=== PATIENT | female | born 1995 | race Caucasian/White ===

== ENCOUNTER 2017-04-10 19:04 | Emergency (ER) | payer OTHER ==
[~2017-04-10] VITALS: Ht 167.6 cm; Wt 97.5 kg
[~2017-04-10 19:04] MED LIST: MTR600X PO; OXYC5TAB PO
[2017-04-10 19:19] VITALS: TEMP 36.9; Ht 167.6 cm; Wt 97.5 kg
[2017-04-10] MEDS ORDERED: SODIUM CHLORIDE 0.9% 1000ML 1,000 ML IV STA (20:10)
[2017-04-10] MEDS ORDERED: KETOROLAC TROMETHAMINE 30 MG/ML VIAL IV STA (20:10)
[2017-04-10] MEDS ORDERED: PROCHLORPERAZINE 5 MG/ML 2 ML VIAL IV STA (20:10)
[2017-04-10] MEDS ORDERED: DEXAMETHASONE SOD INJ 4 MG/ML VIAL IV STA (20:10)
[2017-04-10 20:42] LABS: MEAN CELL VOLUME 84.7 fL (80-100); MEAN CORPUSCULAR HEMOGLOBIN 29.2 pg (25-34); MEAN CORPUSCULAR HGB CONC 34.5 g/dl (32-36); MEAN PLATELET VOLUME 9.2 fL (7.4-10.4); PLATELET COUNT 207 K/uL (130-400); RED BLOOD COUNT 4.96 M/uL (4.2-5.4)
[2017-04-10 20:45] LABS: URINE APPEARANCE CLEAR (CLEAR); URINE BILIRUBIN NEG (NEG); URINE COLOR YELLOW; URINE NITRITE NEG (NEG); URINE PH 6.5 (4.5-7.5); UROBILINOGEN NEG (NEG); ZZUR CULT IF INDIC CLEAN CATCH NO
[2017-04-10 20:50] LABS: MANUAL MICROSCOPIC REQUIRED? NO; REVIEW REQ? NO
[2017-04-10 21:02] LABS: BUN/CREATININE RATIO 13.5 (10-20); CALCIUM 8.5 mg/dl (8.5-10.1); CREATININE 0.71 mg/dl (0.60-1.20); POTASSIUM 3.8 mmol/L (3.5-5.1)
--- NOTE | 2017-04-10 21:03 | DIAGNOSTIC IMAGING REPORT ---
HEAD WITHOUT CONTRAST (CT) CLINICAL HISTORY: 21 years-old Female with Evaluate for hemorrhage or pathology. Acute headache for one week. TECHNIQUE: Multiple axial CT images of the head were obtained without contrast. A dose lowering technique was utilized adhering to the principles of ALARA. CT DOSE: 844.62 mGy.cm COMPARISON: None. FINDINGS: No acute intracranial hemorrhage, midline shift, mass, large territorial ischemia or abnormal extra-axial collection. The calvarium is intact. The paranasal sinuses, mastoid air cells, and middle ear cavities are clear. IMPRESSION: No acute intracranial abnormality. The above report was generated using voice recognition software. It may contain grammatical, syntax or spelling errors. Electronically signed by: Moises Peacock M.D. 04/10/2017 9:01 PM Dictated Date/Time: 04/10/2017 9:00 PM
[2017-04-10 21:07] LABS: COMPLETE YES; EOSINOPHIL % 2.6 %; LARGE GRANULAR LYMPH ABSOLUTE 0.91 K/uL; LARGE GRANULAR LYMPHOCYTE % 16.5 %; LYMPH ABS # 1.34 K/uL (1.2-3.4); LYMPHOCYTE % 24.3 %; NEUTROPHILS % 52.3 %
--- NOTE | 2017-04-10 21:15 | EMERGENCY ROOM VISIT NOTE ---
History First contact with patient: 19:57 Chief Complaint: HEADACHE Stated Complaint: MIGRAINE,DIZZINESS, ELEVATED HEART RATE History of Present Illness The patient is a 21 year old female who presents to the Emergency Room with complaints of headache for the past week. She states the headache came on gradually, has been constant, progressively worsening, started on the left side of her head and has now progressed to the whole top of her head, throbbing, 7/ 10. She has associated nausea, photophobia, and intermittent dizziness with the headache. She has not had any vomiting. She has taken ibuprofen and Tylenol for the headaches without improvement. She denies a history of migraines, states that she has gotten similar headaches in the past, but they have never been this severe or lasted this long. She does note about 5 days ago that she had a sore throat with some fevers for about 2 days, she saw her PCP for this and was told it was most likely a virus. She denies any fevers in the past 3 days. She denies any neck pain or stiffness, back pain, chest pain, shortness of breath, abdominal pain, urinary symptoms, vision changes, rash. Review of Systems A complete 10 point review of systems was reviewed with the patient with pertinent positives and negatives as per history of present illness. All else were negative. Past Medical/Surgical History Medical Problems: (1) 39 weeks gestation of (2) Amniotic fluid leaking (3) Breech presentation Social History Smoking Status: Never Smoker Current/Historical Medications No Active Prescriptions or Reported Meds Allergies Coded Allergies: No Known Allergies (Unverified , 03/04/16) Physical Exam Vital Signs Date Time Temp Pulse Resp B/P (MAP) Pulse Ox O2 Delivery O2 Flow Rate FiO2 04/10/17 21:35 63 14 104/72 100 04/10/17 19:19 36.9 87 20 128/91 98 Room Air Physical Exam CONSTITUTIONAL: No acute distress, but appears to be uncomfortable and in pain. Well appearing and well nourished. Alert and oriented X 4 with normal affect. HEENT: Normocephalic, atraumatic. Pupils equal, round and reactive to light, EOMI. Photophobic. TMs normal. Pharynx normal. NECK: Supple, full active range of motion without discomfort. RESPIRATORY: Clear to auscultation bilaterally with no wheezing, crackles, rhonchi or stridor. Equal expansion bilaterally. CARDIOVASCULAR: Regular rate and rhythm with no murmurs, rubs or gallops. Normal peripheral perfusion. No edema. GASTROINTESTINAL: Soft, nontender, nondistended. Bowel sounds present in all quadrants. MUSCULOSKELETAL: Full range of motion of all joints without discomfort. INTEGUMENTARY: No rash or other significant dermatologic conditions noted. NEUROLOGIC: Cranial nerves II-XII grossly intact. No focal neurologic deficits noted. Normal strength, normal sensation, normal gait, normal coordination, normal speech. Medical Decision & Procedures ER Provider Diagnostic Interpretation: HEAD WITHOUT CONTRAST (CT) CLINICAL HISTORY: 21 years-old Female with Evaluate for hemorrhage or pathology. Acute headache for one week. TECHNIQUE: Multiple axial CT images of the head were obtained without contrast. A dose lowering technique was utilized adhering to the principles of ALARA. CT DOSE: 844.62 mGy.cm COMPARISON: None. FINDINGS: No acute intracranial hemorrhage, midline shift, mass, large territorial ischemia or abnormal extra-axial collection. The calvarium is intact. The paranasal sinuses, mastoid air cells, and middle ear cavities are clear. IMPRESSION: No acute intracranial abnormality. Laboratory Results 04/10/17 20:30 Red Blood Count 4.96, Mean Corpuscular Volume 84.7, Mean Corpuscular Hemoglobin 29.2, Mean Corpuscular Hemoglobin Concent 34.5, Mean Platelet Volume 9.2 04/10/17 20:30 Test 04/10/17 20:30 White Blood Count 5.50 K/uL (4.8-10.8) Red Blood Count 4.96 M/uL (4.2-5.4) Hemoglobin 14.5 g/dL (12.0-16.0) Hematocrit 42.0 % (37-47) Mean Corpuscular Volume 84.7 fL (80-100) Mean Corpuscular Hemoglobin 29.2 pg (25-34) Mean Corpuscular Hemoglobin Concent 34.5 g/dl (32-36) Platelet Count 207 K/uL (130-400) Mean Platelet Volume 9.2 fL (7.4-10.4) RDW Standard Deviation 41.3 fL (36.4-46.3) RDW Coefficient of Variation 13.4 % (11.5-14.5) Neutrophils % (Manual) 52.3 % Lymphocytes % (Manual) 24.3 % Monocytes % (Manual) 4.3 % Eosinophils % (Manual) 2.6 % Neutrophils # (Manual) 2.88 K/uL (1.4-6.5) Total Absolute Neutrophils 2.88 K/uL (1.4-6.5) Lymphocytes # (Manual) 1.34 K/uL (1.2-3.4) Total Absolute Lymphocytes 2.24 K/uL (1.2-3.4) Monocytes # (Manual) 0.24 K/uL (0.11-0.59) Eosinophils # (Manual) 0.14 K/uL (0-0.5) Percent Large Granular Lymphocytes 16.5 % Absolute Large Granular Lymphocytes 0.91 K/uL Red Blood Cell Morphology Unremarkable Urine Color YELLOW Urine Appearance CLEAR (CLEAR) Urine pH 6.5 (4.5-7.5) Urine Specific [place] 1.020 (1.000-1.030) Urine Protein NEG (NEG) Urine Glucose (UA) NEG (NEG) Urine Ketones NEG (NEG) Urine Occult Blood NEG (NEG) Urine Nitrite NEG (NEG) Urine Bilirubin NEG (NEG) Urine Urobilinogen NEG (NEG) Urine Leukocyte Esterase NEG (NEG) Urine Test NEG (NEG) Anion Gap 9.0 mmol/L (3-11) Est Creatinine Clear Calc Drug Dose 145.0 ml/min Estimated GFR () 139.1 Estimated GFR (Non- 120.1 BUN/Creatinine Ratio 13.5 (10-20) Calcium Level 8.5 mg/dl (8.5-10.1) Medications Administered Medications (Trade) Dose Ordered Sig/Jovana Route Start Time Stop Time Status Last Admin Dose Admin Prochlorperazine Edisylate (Compazine Inj) 10 mg NOW STAT IV 04/10/17 20:10 04/10/17 20:13 DC 04/10/17 20:42 10 MG Sodium Chloride 1,000 ml @ 999 mls/hr Q1H1M STAT IV 04/10/17 20:10 04/10/17 21:10 DC 04/10/17 20:43 999 MLS/HR Ketorolac Tromethamine (Toradol Inj) 15 mg NOW STAT IV 04/10/17 20:10 04/10/17 20:13 DC 04/10/17 20:42 15 MG Dexamethasone Sodium Phosphate (Decadron Inj) 10 mg NOW STAT IV 04/10/17 20:10 04/10/17 20:13 DC 04/10/17 20:43 10 MG Medical Decision CC: Patient presenting with complaint of headache Interpretation of Labs: No leukocytosis, no anemia, no significant electrolyte abnormality, normal renal function. UA negative. Urine negative. Differential Diagnosis: Includes, but not limited to migraine, tension headache , sinusitis, intracranial hemorrhage, mass or mass effect, meningitis, among others. Medication Reconciliation: I attest that I have personally reviewed the patient' s current medication list. Vital signs review: I reviewed the patient's vital signs and interpret them as follows: T: Afebrile; BP: Hypertensive; HR: Within normal limits; RR: Within normal limits; Pulse Ox: Within normal limits on room air. Blood pressure screening: The patient was found to have an elevated blood pressure, this was felt to be situational. Summary: Patient was evaluated at bedside, history of physical exam performed. Patient is alert and oriented, no acute distress but does appear somewhat uncomfortable, resting quietly in the stretcher. She does have the lights turned off in the room due to photophobia. Neurologic exam is completely intact with no focal deficits. Given patient's complaint of unusually long headache, CT of the head ordered to rule out any underlying disease process. I do not suspect subarachnoid hemorrhage. Orders were placed at bedside for basic labs, urine and urine , IV fluids/Compazine/Toradol/Decadron to treat headache. Patient discussed with Dr. Melara, who agrees with my assessment and plan. Labs reviewed as above, no acute abnormalities. CT imaging reviewed, unremarkable. Patient reassessed multiple times throughout ED stay, she reports her headache is very much improved, now rates as a 2/10 and she appears very comfortable. Patient was updated on all results and plan for discharge. She was encouraged to follow up with her PCP. Patient was also given strict return precautions should her symptoms worsen or return, she verbalized understanding. Patient was discharged home in stable condition and ambulatory. Impression Primary Impression: Migraine Departure Information Dispostion Home / Self-Care Condition GOOD Prescriptions No Active Prescriptions or Reported Meds Referrals Una López D.O. (PCP) Patient Instructions ED Headache Migraine, My [facility] Additional Instructions DO NOT drive, drink alcohol, operate machinery, or perform dangerous activities today. Rest today in a quiet, peaceful, dark environment and get a full 8-10 hrs of sleep tonight. Avoid loud noises, smoke/smoking, alcohol, bright lights, stress, or physical exertion today to minimize the chance the headache may return. Continue current medications as prescribed. Ibuprofen(Motrin, Advil) may be used for return headaches. Use 600mg every six hours as needed. Take with food. Avoid using more than 2400mg in a 24 hour period. Do not use 2400mg per day for more than three consecutive days without physician direction. Prolonged inappropriate use can lead to stomach upset or ulcers. (AND/OR) Acetaminophen(Tylenol) may also be used for headaches. Use 1000mg every 8 hours as needed. Avoid using more than 3000 mg in a 24 hour period. Return to the ER for passing out, worsening headache, vision problems, neck stiffness/pain, fevers, vomiting, worsening of your condition, or as needed. Follow up with your primary physician in 2-3 days for a recheck of your current condition. Work Instructions Return To Work: 1 day Problem Qualifiers Primary Impression: Migraine Migraine type: unspecified Status migrainosus presence: without status migrainosus Intractability: not intractable Qualified Codes: G43.909 - Migraine, unspecified, not intractable, without status migrainosus
[2017-04-10 21:35] VITALS: BP 104/72; PULSE 63; O2SAT 100
== END 2017-04-10 21:35 | disposition home or self-care (01) ==
LOC: C.EDB 19:06 → C.EDC 21:35
DX: G43.909 Migraine, unspecified, not intractable, without status migrainosus (principal)

== ENCOUNTER 2020-03-05 14:30 | Inpatient (IN) ==
[2020-03-05] MEDS ORDERED: DIPHTHERIA/TETANUS/PERTUSSIS 0.5 ML SYR/VIAL IM ONE (15:01)
[2020-03-05 15:12] LABS: Appearance Urine Clear (Clear); Bacteria Urine Automated Negative (Negative); Bilirubin Urine Negative (Negative); Blood Urine Negative (Negative); Color Urine Dark Yellow; Epithelial Cell Urine Auto >30 /lpf (0-5); Glucose Urine UA Negative (Negative); Ketones Urine 2+ (Negative); Leukocyte Esterase Urine Negative (Negative); Nitrite Urine Negative (Negative); Protein Urine Trace (Negative); RBC Urine Automated 0-4 /hpf (0-4); Specific Gravity Urine 1.028 (1.000-1.030); Urobilinogen Urine Negative (Negative); pH Urine 6.5 (4.5-7.5)
[2020-03-05 15:26] LABS: Basophils # (auto) 0.02 K/uL (0-0.2); Basophils % (auto) 0.2 %; Eosinophils % (auto) 1.2 %; Hematocrit (blood only) 43.1 % (37-47); Hemoglobin 15.1 g/dL (12.0-16.0); Immature Granulocytes # (auto) 0.01 K/uL (0.00-0.02); Immature Granulocytes % (auto) 0.1 %; Lymphocytes # (auto) 1.76 K/uL (1.2-3.4); Lymphocytes % (auto) 21.6 %; Mean Corpuscular Volume 88.5 fL (80-100); Mean Platelet Volume 10.4 fL (7.4-10.4); Monocytes # (auto) 0.41 K/uL (0.11-0.59); Neutrophils # (auto) 5.86 K/uL (1.4-6.5); Neutrophils % (auto) 71.9 %; Platelet Count 248 K/uL (130-400); RDW Coefficient of Variation 13.2 % (11.5-14.5); RDW Standard Deviation 42.9 fL (36.4-46.3); Red Blood Count 4.87 M/uL (4.2-5.4); White Blood Count 8.16 K/uL (4.8-10.8)
[2020-03-05 15:37] LABS: Amphetamines+Metham, Urine Neg (Neg); Barbiturates, Urine Neg (Neg); Benzodiazepine, Urine Neg (Neg); Cocaine, Urine Neg (Neg); MDMA (Ecstacy), Urine Neg (Neg); Methadone, Urine Neg (Neg); Opiate, Urine Neg (Neg); Phencyclidine, Urine Neg (Neg)
[2020-03-05 15:44] LABS: Albumin Level 3.9 gm/dl (3.4-5.0); BUN Creatinine Ratio 12.7 (10-20); Calcium 9.4 mg/dl (8.5-10.1); Creatinine Clr Calc Pharmacy 98.5 ml/min; Est GFR (African American) 116.2; Est GFR (Non-African American) 100.2; Potassium 3.8 mmol/L (3.5-5.1)
[2020-03-05 15:51] LABS: Acetaminophen < 2 ug/ml (10-30); Salicylate < 1.7 mg/dl (2.8-20)
[2020-03-05 15:55] LABS: Albumin Globulin Ratio 0.9 (0.9-2); Bilirubin,Total 0.8 mg/dl (0.2-1); Globulin 4.1 gm/dl (2.5-4.0); Thyroid Stimulating Hormone 1.06 uIu/ml (0.300-4.500)
--- NOTE | 2020-03-05 16:04 | Emergency Department Note ---
Impression & Plan Mood disorder ED Provider Note INFORMANT: Patient ED PROVIDER(S): Betito Romo MD CHIEF COMPLAINT: Suicidal ideation PLAN: Disposition: Admitted Condition: Good MEDICAL DECISION MAKING: Patient presented with complaints of suicidal ideation. Medical screening work- up was unremarkable. The patient did have her wound cleaned and bandaged. Did not require suturing. She had her tetanus updated. She was evaluated by the ER psychiatric caser. A bed search was performed. Patient was accepted at [facility] for [facility] health treatment. She was reassessed and was doing well. Patient was admitted for further management. Triage Nursing notes reviewed and agree them. Vital Signs: reviewed and remarkable for no significant abnormalities Differential diagnosis: Mood disorder, infection, hypoglycemia, electrolyte abnormalities, cardiac sources, intracerebral event, toxicologic, trauma, neurologic, as well as other pathologies. Diagnostics interpreted by me: Unremarkable CBC chemistry panel. Toxicology screen unremarkable except for marijuana. Imaging studies: Deferred Consultation(s): [facility] HPI: The patient is a 24 year old female who presents to the Emergency Room with complaints of suicidal ideation. This started several weeks ago and is worsening. The patient went to the [facility] today for voluntary admission but was directed to the ER as they do not have any space available. The patient also notes the following associated symptoms, depressed mood. The patient has found no relieving factors. She does admit to scratching her right forearm with a tack. Tetanus is not up-to-date. Pt denies LOC, headache, fevers, chills, diaphoresis, visual changes, neck pain, chest pain, breathing difficulties, nausea, vomiting, abdominal pain, back pain, melena, hematochezia, urinary symptoms, numbness, weakness, lymphadenopathy, rash, or other complaints. ROS: See above HPI for pertinent positives & negatives. A total of 10 systems reviewed and were otherwise negative. PAST MEDICAL HISTORY:See Below, patient denies PAST SURGICAL HISTORY:See Below, patient denies FAMILY HISTORY:See Below SOCIAL HISTORY:See Below, admits to marijuana and occasional alcohol HOME MEDICATIONS:See Below ALLERGIES:See Below VITALS:See Below PHYSICAL EXAMINATION: GENERAL: Awake, mildly depressed-appearing, in no distress HENT: Normocephalic, atraumatic. Oropharynx unremarkable. EYES: Normal conjunctiva. Sclera non-icteric. NECK: Inspection normal. Non-tender. Supple. No nuchal rigidity. FROM. No masses. RESPIRATORY: Clear to auscultation. No wheezes. No rales. Normal respiratory effort. CARDIAC: Normal rate. Normal rhythm. No murmurs. No rubs. Extremities warm and well perfused. Pulses equal. No JVD. GI: Soft, non-distended. No tenderness to palpation. No rebound or guarding. No masses. RECTAL: Deferred. MUSCULOSKELETAL: Linear superficial abrasion to the right forearm. Chest examination reveals no tenderness. The back is symmetrical on inspection without obvious abnormality. There is no CVA tenderness to palpation. No joint edema. LOWER EXTREMITIES: Calves are equal size bilaterally and non-tender. No edema. No discoloration. NEURO: Normal sensorium. No sensory or motor deficits noted. SKIN: No rash or jaundice noted. Betito Romo MD Past Med/Surg History Medical History (Updated 03/05/20 @ 15:57 by Betito Romo MD) Strep pharyngitis Social History Smoking Status: Never smoker Preferred Language: [place] Feels Safe at Home: Yes Allergies Allergies Allergy/AdvReac Type Severity Reaction Status Date / Time No Known Allergies Allergy Verified 05/12/19 18:52 Home Meds Home Medications Medication Instructions Recorded Confirmed Control Pills 1 tab PO DAILY 04/16/19 05/12/19 Results & Data (ED) Vital Signs Vital Signs - 24 hr 03/05/20 14:57 Temperature 37.2 C Temperature Source Oral Pulse Rate 109 H Respiratory Rate 16 Respiratory Effort / Characteristics Non-Labored Spontaneous Respiratory Depth Normal Respiratory Pattern Regular Blood Pressure 127/74 Blood Pressure Mean 91 Blood Pressure Position Sitting Pulse Oximetry 95 Oxygen Delivery Method Room Air Sepsis Recent Fever Within 48 Hours No Sepsis New/Unexplained Change in Mental Status N/A Sepsis Action Taken by Nursing No Action Required Laboratory Data Result diagrams: 03/05/20 15:02 03/05/20 15:02 Lab Results 03/05/20 03/05/20 03/05/20 Range/Units 14:40 14:40 14:40 WBC (4.8-10.8) K/uL RBC (4.2-5.4) M/uL Hgb (12.0-16.0) g/dL Hct (37-47) % MCV (80-100) fL MCH (25-34) pg MCHC (32-36) g/dL RDW Std Deviation (36.4-46.3) fL RDW Coeff of Ty (11.5-14.5) % Plt Count (130-400) K/uL MPV (7.4-10.4) fL Immature Gran % (Auto) % Neut % (Auto) % Lymph % (Auto) % [place] % (Auto) % Eos % (Auto) % Baso % (Auto) % Neut # (Auto) (1.4-6.5) K/uL Lymph # (Auto) (1.2-3.4) K/uL [place] # (Auto) (0.11-0.59) K/uL Eos # (Auto) (0-0.5) K/uL Baso # (Auto) (0-0.2) K/uL Immature Gran # (Auto) (0.00-0.02) K/uL Sodium (136-145) mmol/L Potassium (3.5-5.1) mmol/L Chloride (98-107) mmol/L Carbon Dioxide (21-32) mmol/L Anion Gap (3-11) BUN (7-18) mg/dl Creatinine (0.6-1.2) mg/dl Est Cr Clr Drug Dosing ml/min Est GFR ( Amer) Est GFR (Non-Af Amer) BUN/Creatinine Ratio (10-20) Glucose (70-99) mg/dl Calcium (8.5-10.1) mg/dl Total Bilirubin (0.2-1) mg/dl AST (15-37) U/L ALT (12-78) U/L Alkaline Phosphatase (45-117) U/L Total Protein (6.4-8.2) gm/dl Albumin (3.4-5.0) gm/dl Globulin (2.5-4.0) gm/dl Albumin/Globulin Ratio (0.9-2) TSH (0.300-4.500) uIu/ml Urine Color Dark Yellow Urine Appearance Clear (Clear) Urine pH 6.5 (4.5-7.5) Ur Specific [place] 1.028 (1.000-1.030) Urine Protein Trace H (Negative) Urine Glucose (UA) Negative (Negative) Urine Ketones 2+ H (Negative) Urine Blood Negative (Negative) Urine Nitrite Negative (Negative) Urine Bilirubin Negative (Negative) Urine Urobilinogen Negative (Negative) Ur Leukocyte Esterase Negative (Negative) Urine WBC (Auto) 1-5 (0-5) /hpf Urine RBC (Auto) 0-4 (0-4) /hpf U Hyaline Cast (Auto) 1-5 (0-5) /lpf U Epithel Cells (Auto) >30 H (0-5) /lpf Urine Bacteria (Auto) Negative (Negative) POC Ur Test NEG (NEG) Salicylates (2.8-20) mg/dl Urine Opiates Screen Neg (Neg) Ur Methadone, Qual Neg (Neg) Acetaminophen (10-30) ug/ml Urine Barbiturates Neg (Neg) Ur Phencyclidine (PCP) Neg (Neg) U Amphetamin/Meth Scrn Neg (Neg) MDMA (Ecstasy) Screen Neg (Neg) U Benzodiazepines Scrn Neg (Neg) Ur Cocaine Metabolite Neg (Neg) U Marijuana (THC) Screen Pos H (Neg) Ethyl Alcohol mg/dL (0-3) mg/dl 03/05/20 03/05/20 03/05/20 Range/Units 15:02 15:02 15:02 WBC 8.16 (4.8-10.8) K/uL RBC 4.87 (4.2-5.4) M/uL Hgb 15.1 (12.0-16.0) g/dL Hct 43.1 (37-47) % MCV 88.5 (80-100) fL MCH 31.0 (25-34) pg MCHC 35.0 (32-36) g/dL RDW Std Deviation 42.9 (36.4-46.3) fL RDW Coeff of Ty 13.2 (11.5-14.5) % Plt Count 248 (130-400) K/uL MPV 10.4 (7.4-10.4) fL Immature Gran % (Auto) 0.1 % Neut % (Auto) 71.9 % Lymph % (Auto) 21.6 % [place] % (Auto) 5.0 % Eos % (Auto) 1.2 % Baso % (Auto) 0.2 % Neut # (Auto) 5.86 (1.4-6.5) K/uL Lymph # (Auto) 1.76 (1.2-3.4) K/uL [place] # (Auto) 0.41 (0.11-0.59) K/uL Eos # (Auto) 0.10 (0-0.5) K/uL Baso # (Auto) 0.02 (0-0.2) K/uL Immature Gran # (Auto) 0.01 (0.00-0.02) K/uL Sodium 139 (136-145) mmol/L Potassium 3.8 (3.5-5.1) mmol/L Chloride 107 (98-107) mmol/L Carbon Dioxide 22 (21-32) mmol/L Anion Gap 10.0 (3-11) BUN 10 (7-18) mg/dl Creatinine 0.81 (0.6-1.2) mg/dl Est Cr Clr Drug Dosing 98.5 ml/min Est GFR ( Amer) 116.2 Est GFR (Non-Af Amer) 100.2 BUN/Creatinine Ratio 12.7 (10-20) Glucose 89 (70-99) mg/dl Calcium 9.4 (8.5-10.1) mg/dl Total Bilirubin 0.8 (0.2-1) mg/dl AST 16 (15-37) U/L ALT 25 (12-78) U/L Alkaline Phosphatase 72 (45-117) U/L Total Protein 8.0 (6.4-8.2) gm/dl Albumin 3.9 (3.4-5.0) gm/dl Globulin 4.1 H (2.5-4.0) gm/dl Albumin/Globulin Ratio 0.9 (0.9-2) TSH 1.060 (0.300-4.500) uIu/ml Urine Color Urine Appearance (Clear) Urine pH (4.5-7.5) Ur Specific [place] (1.000-1.030) Urine Protein (Negative) Urine Glucose (UA) (Negative) Urine Ketones (Negative) Urine Blood (Negative) Urine Nitrite (Negative) Urine Bilirubin (Negative) Urine Urobilinogen (Negative) Ur Leukocyte Esterase (Negative) Urine WBC (Auto) (0-5) /hpf Urine RBC (Auto) (0-4) /hpf U Hyaline Cast (Auto) (0-5) /lpf U Epithel Cells (Auto) (0-5) /lpf Urine Bacteria (Auto) (Negative) POC Ur Test (NEG) Salicylates < 1.7 L (2.8-20) mg/dl Urine Opiates Screen (Neg) Ur Methadone, Qual (Neg) Acetaminophen < 2 L (10-30) ug/ml Urine Barbiturates (Neg) Ur Phencyclidine (PCP) (Neg) U Amphetamin/Meth Scrn (Neg) MDMA (Ecstasy) Screen (Neg) U Benzodiazepines Scrn (Neg) Ur Cocaine Metabolite (Neg) U Marijuana (THC) Screen (Neg) Ethyl Alcohol mg/dL (0-3) mg/dl 03/05/20 Range/Units 15:02 WBC (4.8-10.8) K/uL RBC (4.2-5.4) M/uL Hgb (12.0-16.0) g/dL Hct (37-47) % MCV (80-100) fL MCH (25-34) pg MCHC (32-36) g/dL RDW Std Deviation (36.4-46.3) fL RDW Coeff of Ty (11.5-14.5) % Plt Count (130-400) K/uL MPV (7.4-10.4) fL Immature Gran % (Auto) % Neut % (Auto) % Lymph % (Auto) % [place] % (Auto) % Eos % (Auto) % Baso % (Auto) % Neut # (Auto) (1.4-6.5) K/uL Lymph # (Auto) (1.2-3.4) K/uL [place] # (Auto) (0.11-0.59) K/uL Eos # (Auto) (0-0.5) K/uL Baso # (Auto) (0-0.2) K/uL Immature Gran # (Auto) (0.00-0.02) K/uL Sodium (136-145) mmol/L Potassium (3.5-5.1) mmol/L Chloride (98-107) mmol/L Carbon Dioxide (21-32) mmol/L Anion Gap (3-11) BUN (7-18) mg/dl Creatinine (0.6-1.2) mg/dl Est Cr Clr Drug Dosing ml/min Est GFR ( Amer) Est GFR (Non-Af Amer) BUN/Creatinine Ratio (10-20) Glucose (70-99) mg/dl Calcium (8.5-10.1) mg/dl Total Bilirubin (0.2-1) mg/dl AST (15-37) U/L ALT (12-78) U/L Alkaline Phosphatase (45-117) U/L Total Protein (6.4-8.2) gm/dl Albumin (3.4-5.0) gm/dl Globulin (2.5-4.0) gm/dl Albumin/Globulin Ratio (0.9-2) TSH (0.300-4.500) uIu/ml Urine Color Urine Appearance (Clear) Urine pH (4.5-7.5) Ur Specific [place] (1.000-1.030) Urine Protein (Negative) Urine Glucose (UA) (Negative) Urine Ketones (Negative) Urine Blood (Negative) Urine Nitrite (Negative) Urine Bilirubin (Negative) Urine Urobilinogen (Negative) Ur Leukocyte Esterase (Negative) Urine WBC (Auto) (0-5) /hpf Urine RBC (Auto) (0-4) /hpf U Hyaline Cast (Auto) (0-5) /lpf U Epithel Cells (Auto) (0-5) /lpf Urine Bacteria (Auto) (Negative) POC Ur Test (NEG) Salicylates (2.8-20) mg/dl Urine Opiates Screen (Neg) Ur Methadone, Qual (Neg) Acetaminophen (10-30) ug/ml Urine Barbiturates (Neg) Ur Phencyclidine (PCP) (Neg) U Amphetamin/Meth Scrn (Neg) MDMA (Ecstasy) Screen (Neg) U Benzodiazepines Scrn (Neg) Ur Cocaine Metabolite (Neg) U Marijuana (THC) Screen (Neg) Ethyl Alcohol mg/dL < 3.0 (0-3) mg/dl Administered Medications Discontinued Medications Diphtheria/Pertussis/Tetanus Vacc (Diphtheria/Tetanus/Pertussis 0.5 Ml Syr/Vial) 0.5 ml IM .ONCE ONE Stop: 03/05/20 15:02 Last Admin: 03/05/20 15:17 Dose: 0.5 ml Documented by: [id number] Discharge Plan Visit Data Chief Complaint: Mental Health Evaluation ED Provider: Betito Romo Discharge Problem: Mood disorder Patient Disposition: Admitted As Inpatient Forms Stand Alone Forms: [facility], Suicide Prevention Resources Prescriptions Prescriptions: No Action Control Pills 1 tab PO DAILY RF: 0 Referrals Referrals: Una López DO [Primary Care Provider] -
[2020-03-05] MEDS ORDERED: ALUMINUM/MAGNESIUM SUSP 30 ML UDC PO PRN (17:02)
[2020-03-05] MEDS ORDERED: BISMUTH SUBSALICYLATE PER ML OMNICELL CHARGE PO PRN (17:02)
[2020-03-05] MEDS ORDERED: MAGNESIUM HYDROXIDE SUSP 30 ML UDC PO PRN (17:02)
[2020-03-05] MEDS ORDERED: ACETAMINOPHEN 325 MG TAB PO PRN (17:02)
[2020-03-05] MEDS ORDERED: SODIUM CHLORIDE 0.65% NA SOLN 45 ML (OCEAN) PRN (17:02)
[2020-03-05] MEDS ORDERED: ORAL CONTRACEPTIVE~ORDER AWAITING ACTION SCH (17:45)
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
[2020-03-06] MEDS ORDERED: TRAZODONE HCL 50 MG TAB PO PRN (15:52)
--- NOTE | 2020-03-07 09:28 | Psychiatric Progress Note ---
Date of Service March 07, 2020 Impression / Recommendations Impression This 24-year-old woman reports a 10+ year history of recurrent symptoms of major depression. As per Dr Nieves's 03/06/20 impression "Part of the patient's history includes the fact that she was born in [place] and raised in a [place], and it may be presumed that this part of the patient's history may play a significant role in the patient's character development and psychiatric symptomatology." Example given is being conflict avoidant. She does have three prior suicide attempts that were impulsive with intention to kill herself She has quick rising emotions with conflict/change in expectations and keaton with MJ. SHe is voluntary for treatment and willing to restart medications and connect with outpatient services. The patient reported that she was still having suicidal thoughts at [facility]. As of 03/06 she reported the thoughts are fleeting, and are no longer associated with any active plan or intent. Nevertheless, further observation and treatment initiation on an inpatient setting are medically necessary, particularly within the context of the patient's past history of several serious suicide attempts. (1) Major depression: 03/06/20 -The patient has been admitted to the [facility] behavioral health unit and is currently being observed on suicide precautions. She has been referred for individual, group, recreational, and family interventions. Treatment goals at this point will include the development of improved individual coping strategies that can be applied when under stress. -Given the fact that the patient reports that she has a past history of favorably responding to fluoxetine (starting at 20 mg a day and then increased to 30 mg a day), and given that she reports that she tolerated fluoxetine well without any noted adverse effects, the plan will be to restart fluoxetine 20 mg a day and titrate as tolerated and indicated to 30 mg or more., 03/07 continue with start of fluoxetine 20mg, and milieu and group therapy, goal is to establish meeting time for patient and BF with social work (2) At risk for suicide: 03/06/20 and 03/07 -Patient has a reported history of several previous suicide attempts. She also has a history of intentional self injurious behaviors in the form of scratching the fleshy portions of her anatomy with sharp objects such as thumbtacks in order to relieve stress. -At admission, the patient reported that she had just intentionally cut the dorsal surface of her forearm, but also noted that she was having active thoughts of causing serious physical harm to herself. She notes that she continued to have suicidal thoughts after admission, but indicates that these thoughts have not become fleeting and are no longer associated with any particular plan or intent. -Psychiatric hospitalization is medically necessary given the fact that the patient is clearly depressed, has engaged in recent self-injurious behaviors, has had active thoughts of suicide as recently as yesterday, and has a history of several serious suicide attempts in the past. Until further stabilized and appropriate aftercare arrangements were made inpatient psychiatric hosp italization is the least restrictive, least intensive level of care consistent with the patient's clinical and safety needs. Inventory Assets Strengths: Supportive boyfriend. Supportive family. Positive work history. Intelligence. Motivated to treatment. Needs: Improved individual coping strategies. Mood regulation. Resolution of active suicidality. 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 She has a history of recurrent major depression, and was admitted on 03/05/20 17:02 on a 201 voluntary agreement because of suicidal ideation and an episode of intentional self-injurious behavior. Chief Complaint "I'm okay, better in the morning worse as the day goes on". Review of Systems Sleep Information Total Hours of Sleep: 8.75 Sleep Comments: pt on q-15 minute checks Meal Information Percent Meal Consumed - Breakfast: 25 Percent Meal Consumed - Lunch: 90 Percent Meal Consumed - Dinner: 60 Nutrition Comment: pt. has poor appetite Subjective Subjective Patient was seen & assessed and interval progress reviewed with nursing and social work. Per staff patient slept overnight, is willing for family meeting, awaiting confirmation with boyfriend. Discussed social history. Discussed her quick rising anger and swearing language last PM when she was asked not to wear a sweatshirt with the word "bullet" on it (due to presence of patient's who are psychotic with loose associations). Patient became quickly angry and said "people who can't handle this are a pussy ass bitch." She did calm down with time. Met with patient today. She states her mood upon arrival to the inpatient unit Monday was a1/10 (10 best, 0 most depressed), today just waking 5/10 "I have self loathing thoughts and as the day goes on and things happen I feel worse and worse) with last night's mood at a 3/10 when she was upset. She agrees times when things do not go according to expectation she has strong emotions. e.g. when BF could not visit she had anxiety and panic attack, and yesterday with sweatshirt concern she was quickly angry. She remains willing to take prozac, and prn trazodone. Encouraged her to set a goal for the day to work on mood and anxiety and to attend groups. She denies symptoms on physical ROS. Physical Exam Psychiatric Orientation: alert, oriented x 3 and cooperative Apperance: + disheveled just woken out of bed, appears clean Eye Contact: good eye contact Motor Behavior: no abnormal motor movements Speech: normal rate/rhythm/volume of speech tone is even and not very expressive limited emotional valence Affect: + depressed affect Mood: + depressed mood Thought Process: linear/logical thought process and clear/coherent thought process Thought Content: + self deprecation Suicidal Thoughts: denies suicidal thoughts Homicidal Thoughts: denies homicidal thoughts Hallucinations: no auditory hallucinations Cognition: recent memory grossly intact Estimated Intelligence: average estimated intelligence Insight: + fair insight Judgement: + fair judgement Vital Signs (Past 24 Hours) Last Vital Signs Temp 36.8 C 03/07/20 06:40 Pulse 68 03/07/20 06:41 Resp 16 03/07/20 06:40 BP 96/64 L 03/07/20 06:41 Pulse Ox 98 03/05/20 17:24 Results & Data ([facility]) Current Inpatient Medications Current Inpatient Medications: Current Inpatient Medications Acetaminophen (Acetaminophen 325 Mg Tab) 650 mg PO Q4H PRN PRN Reason: Headache or Minor Fever Stop: 04/04/20 17:01 Al Hydrox/Mg Hydrox/Simethicone (Aluminum/Magnesium Susp 30 Ml Udc) 30 ml PO Q4H PRN PRN Reason: GI Upset Stop: 04/04/20 17:01 Bismuth Subsalicylate (Bismuth Subsalicylate Per Ml [employer] Charge) 15 ml PO PRN PRN PRN Reason: Loose Stool Stop: 04/04/20 17:01 Fluoxetine HCl (Fluoxetine Hcl 20 Mg Cap) 20 mg PO QAM SUSAN Stop: 04/06/20 08:59 Hydroxyzine HCl (Hydroxyzine Hcl 25 Mg Tab) 50 mg PO HSZ PRN PRN Reason: Insomnia Stop: 04/04/20 17:01 Hydroxyzine HCl (Hydroxyzine Hcl 25 Mg Tab) 25 mg PO Q4H PRN PRN Reason: Anxiety Stop: 04/04/20 17:01 Magnesium Hydroxide (Magnesium Hydroxide Susp 30 Ml Udc) 30 ml PO DAILY PRN PRN Reason: Constipation Stop: 04/04/20 17:01 Sodium Chloride (Sodium Chloride 0.65% Na Soln 45 Ml ([place])) 1 - 2 sprays NA PRN PRN PRN Reason: Nasal Dryness/Congestion Stop: 04/04/20 17:01 Trazodone HCl (Trazodone Hcl 50 Mg Tab) 50 mg PO HS PRN PRN Reason: Bedtime anxiety Stop: 04/05/20 15:51 Mental Health & Subst Abuse Tx Psychiatrist Name of Psychiatrist: Rocio Hu Psychiatric Appointment Comment: will be scheduled after intake with therapist Therapist Name of Therapist: Rocio Vásquez, [address] [facility] Date of Therapist Appointment: 03/12/20 Time of Therapist Appointment: 10am Therapy Appointment Comment: wear a mask, go to the parking lot at the back of the [facility], & ring buzzer Post Discharge Appointments Primary Care Physician Name Of Family Doctor: Dr. Morse
[2020-03-07] MEDS: FLUOXETINE HCL 20 MG CAP PO SCH (10:16)
[2020-03-07 22:27] LABS: Marijuana Quant, GCMS Urine 3190 ng/mL (<5)
[2020-03-08] MEDS: FLUOXETINE HCL 20 MG CAP PO SCH (08:47)
--- NOTE | 2020-03-08 12:08 | Psychiatric Progress Note ---
Date of Service March 08, 2020 Impression / Recommendations Impression This 24-year-old woman reports a 10+ year history of recurrent symptoms of major depression. As per Dr Nieves's 03/06/20 impression "Part of the patient's history includes the fact that she was born in [place] and raised in a [place], and it may be presumed that this part of the patient's history may play a significant role in the patient's character development and psychiatric symptomatology." Example given is being conflict avoidant. She does have three prior suicide attempts that were impulsive with intention to kill herself She has quick rising emotions with conflict/change in expectations and keaton with MJ. SHe is voluntary for treatment and willing to restart medications and connect with outpatient services. The patient reported that she was still having suicidal thoughts at [facility]. As of 03/06 she reported the thoughts are fleeting, and are no longer associated with any active plan or intent. Nevertheless, further observation and treatment initiation on an inpatient setting are medically necessary, particularly within the context of the patient's past history of several serious suicide attempts. (1) Major depression: 03/06/20 -The patient has been admitted to the [facility] behavioral health unit and is currently being observed on suicide precautions. She has been referred for individual, group, recreational, and family interventions. Treatment goals at this point will include the development of improved individual coping strategies that can be applied when under stress. -Given the fact that the patient reports that she has a past history of favorably responding to fluoxetine (starting at 20 mg a day and then increased to 30 mg a day), and given that she reports that she tolerated fluoxetine well without any noted adverse effects, the plan will be to restart fluoxetine 20 mg a day and titrate as tolerated and indicated to 30 mg or more. 03/07 -continue with start of fluoxetine 20mg, and milieu and group therapy, goal is to establish meeting time for patient and BF with social work 03/08 - continue fluoxetine 20mg, stop trazodone and trial vistaril at for insomnia, and CBT homework assigned to begin to be more intentional about self- observation of status, and complete safety plan (2) At risk for suicide: 03/06/20 and 03/07 and 03/08 -Patient has a reported history of several previous suicide attempts. She also has a history of intentional self injurious behaviors in the form of scratching the fleshy portions of her anatomy with sharp objects such as thumbtacks in order to relieve stress. -At admission, the patient reported that she had just intentionally cut the dorsal surface of her forearm, but also noted that she was having active thoughts of causing serious physical harm to herself. She notes that she continued to have suicidal thoughts after admission, but indicates that these thoughts have not become fleeting and are no longer associated with any particular plan or intent. -Psychiatric hospitalization is medically necessary given the fact that the patient is clearly depressed, has engaged in recent self-injurious behaviors, has had active thoughts of suicide as recently as yesterday, and has a history of several serious suicide attempts in the past. Until further stabilized and appropriate aftercare arrangements were made inpatient psychiatric hospitalization is the least restrictive, least intensive level of care consistent with the patient's clinical and safety needs. Inventory Assets Strengths: Supportive boyfriend. Supportive family. Positive work history. Intelligence. Motivated to treatment. Needs: Improved individual coping strategies. Mood regulation. Resolution of active suicidality. 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 She has a history of recurrent major depression, and was admitted on 03/05/20 17:02 on a 201 voluntary agreement because of suicidal ideation and an episode of intentional self-injurious behavior. Chief Complaint "[]". Review of Systems Sleep Information Total Hours of Sleep: 6.5 Sleep Comments: pt on q-15 minute checks Meal Information Percent Meal Consumed - Breakfast: 100 Percent Meal Consumed - Lunch: 100 Percent Meal Consumed - Dinner: 85 Nutrition Comment: pt. has poor appetite Subjective Subjective Patient was seen & assessed and interval progress reviewed with nursing and social work. Patient had some one to one time with the therapist last night and seems the available supports and treatment attending groups, taking medications Todd had meeting with social work and telephone with BF yesterday and she is irritable with cycle of frustration mounting, turning inward and letting it pile up then moving to a saturated irritable/angry phase which she is more likely to be angry and verbalize her anger. Partner is supportive. THey discussed frustrations with their roommate situation, liking their home but considering alternatives for next year when the lease is up for renewal. Met with patient today in her room. SHe did take trazodone last night, and felt "twitchy" taking "almost longer to go to sleep than at home" but once she was asleep she did not wake up as much. She denies any AM lag this morning, mood is a 4/10. "I am not great but I am better than when I came in here." Patient is taking the prozac 20mg and denies SE, denies having had any insomnia on prozac before so does not believe last nights' worsening of sleep onset was prozac. Discussed option of vistaril trial. SHe denies overt SI, intention or plan at this time. SHe does continue to re cognize that she is often irritable and overwhelmed, and after talking about anger (shares educational worksheet) sees several of the manifestations of anger in herself. SHe would like to work on this and feels bad about being so easily overwhelmed and irritable. Spent >20min in CBT discussed beginning to "take the temperature" or assigning a [id number] status to how she is doing/feeling. Asked her to consider what she thinks, feels emotionally and physically feels or behaviors at each of the green, yellow, red phases wtih the goal of practicing here and after discharge or recognizing her "temperature" or status. Encouraged her then to work with therapist here, and when she reaches outpatient on things she can do cognitively and behaviorally to "exit" to get back to a lower status or maintain and bolster against additional stressors that may come. Noted early on these will be immediate actions that are shorter lived, but with time there will be longerterm actions (e.g.longer term goals) that help to lower the temperature more consistently (e.g. giving time for meds to work and be adjusted, adjusting living situation, etc) Further, discussed non-judgemental manner of assessing temperature like the weather, (e.g. I look outside and dress accordingly,) as opposed to telling herself she is wrong or bad for being in a certain status. She is engaged and states she is willing to try this assignment. Discussed safety plan on pages 97-100 and asked her to work on those in case she again gets to red status and feels the need to escape again or self-harm. Patient is very receptive to discussion and participates actively. Physical Exam Psychiatric Orientation: alert and oriented x 3 Apperance: appropriately dressed and appropriately groomed Eye Contact: good eye contact Motor Behavior: steady gait and station and no abnormal motor movements Speech: normal rate/rhythm/volume of speech subuded affect, non-labile "I am not great but better than when I came here" Thought Process: linear/logical thought process able to self observe and identify she is irritable and easily overwhelmed, future oriented, expressing willingness to learn and work on her well-being Suicidal Thoughts: denies suicidal thoughts however admits she has limited ideas on how to stop the cycle of irritability, anger and feeling overwhelmed that leads to SI Cognition: recent memory grossly intact Estimated Intelligence: average estimated intelligence Insight: good insight Judgement: good judgement Vital Signs (Past 24 Hours) Last Vital Signs Temp 36.7 C 03/08/20 06:49 Pulse 83 03/08/20 06:50 Resp 18 03/08/20 06:49 BP 109/68 03/08/20 06:50 Pulse Ox 98 03/05/20 17:24 Results & Data ([facility]) Laboratory Results Laboratory Results - last 24 hr 03/05/20 14:40 U Marijuana THC Carboxy [address] H Drug Screen Comment SEE NOTE Current Inpatient Medications Current Inpatient Medications: Current Inpatient Medications Acetaminophen (Acetaminophen 325 Mg Tab) 650 mg PO Q4H PRN PRN Reason: Headache or Minor Fever Stop: 04/04/20 17:01 Al Hydrox/Mg Hydrox/Simethicone (Aluminum/Magnesium Susp 30 Ml Udc) 30 ml PO Q4H PRN PRN Reason: GI Upset Stop: 04/04/20 17:01 Bismuth Subsalicylate (Bismuth Subsalicylate Per Ml [employer]nic[employer] Charge) 15 ml PO PRN PRN PRN Reason: Loose Stool Stop: 04/04/20 17:01 Fluoxetine HCl (Fluoxetine Hcl 20 Mg Cap) 20 mg PO QAM SUSAN Stop: 04/06/20 08:59 Last Admin: 03/08/20 08:47 Dose: 20 mg Documented by: Hydroxyzine HCl (Hydroxyzine Hcl 25 Mg Tab) 25 mg PO Q4H PRN PRN Reason: Anxiety Stop: 04/04/20 17:01 Magnesium Hydroxide (Magnesium Hydroxide Susp 30 Ml Udc) 30 ml PO DAILY PRN PRN Reason: Constipation Stop: 04/04/20 17:01 Sodium Chloride (Sodium Chloride 0.65% Na Soln 45 Ml ([place])) 1 - 2 sprays NA PRN PRN PRN Reason: Nasal Dryness/Congestion Stop: 04/04/20 17:01 Trazodone HCl (Trazodone Hcl 50 Mg Tab) 50 mg PO HS PRN PRN Reason: Bedtime anxiety Stop: 04/05/20 15:51 Last Admin: 03/07/20 23:03 Dose: 50 mg Documented by: Mental Health & Subst Abuse Tx Psychiatrist Name of Psychiatrist: Rocio Hu Psychiatric Appointment Comment: will be scheduled after intake with therapist Therapist Name of Therapist: Rocio Vásquez, [address] [facility] Date of Therapist Appointment: 03/12/20 Time of Therapist Appointment: 10am Therapy Appointment Comment: wear a mask, go to the parking lot at the back of the [facility], & ring buzzer Post Discharge Appointments Primary Care Physician Name Of Family Doctor: Dr. Morse
[2020-03-09] MEDS: FLUOXETINE HCL 20 MG CAP PO SCH (08:51)
--- NOTE | 2020-03-09 09:42 | Discharge Summary ---
Date of Service March 09, 2020 History of Present Illness The patient is a 24-year-old woman who was admitted voluntarily through the emergency department after she presented, reported that she was having thoughts of suicide, indicated a past history of several suicide attempts, and demonstrated that she had, earlier in the day, engaged in episode of intentional self-injurious behaviors that consisted of her using a thumb tack to cut the dorsal surface of her forearm. The patient reports that she has suffered from depression intermittently since her teenage years, and has recently been experiencing an exacerbation of her depression. Specific symptoms of depression reported include depressed mood, crying spells, irritability, poor concentration, poor frustration tolerance, poor concentration, low energy, self- isolation, and anhedonia. The event that seems to have precipitated the admission, as described by the patient, was an argument that she had yesterday () morning with her boyfriend. The patient explained that she had been awakened by the sound of her 4-year-old daughter crying and screaming. Evidently, because the patient had let it be known that she needed sleep, her roommate had gotten her the patient's 4-year-old daughter out of bed and dressed for the morning, but evidently this change in routine (the daughter's used to the patient preparing her for the day each morning) upset the 4-year-old daughter and she was demanding the patient's attention. The patient admits that she was irritated by this because she had been so tired, but she attended to her daughter's need and then said that she engaged in what she considers to be her best coping strategy which was to attempt to isolate herself by going out to the garage, and by smoking marijuana. She notes that her boyfriend followed her out to to the garage in order to find out why she was upset, when the patient said, and frustration, "I do not know if I am really cut out to be a mother. I get so frustrated," her boyfriend was alarmed and at some point refer to her as "as crazy as [his ex-]." Evidently, the boyfriend's ex- has a history of seriously disturbed behavior and the fact that her boyfriend had made reference to her being like his ex- genuinely enraged the patient, a angry argument pursued, and eventually the patient took a thumbtack and superficially scratched her forearm with the thumbtack. The patient acknowledges that she has a family long history of intentional self-injurious behaviors. She reports that she engages in the behaviors when she feels overwhelmed and as if "[her] head is about to explode" because of stress. After scratching himself, the patient realized that her behavior was, in fact, irrational and that she truly needed to get help. She asked her boyfriend to let her have the car so she could drive to a local psychiatric hospital for possible admission, and when he declined she walked from her home to the [facility], and then called Laura and was taken to [facility] in [place], [place]. Upon arriving at [facility] she learned that they did not have available be bed, but they arranged for transportation to [facility] for admission here to the behavioral health unit. The patient explains that while she has been having thoughts of suicide, and the context for this is a history of several serious suicide attempts, her primary goal was to get started in treatment and then get appropriate referrals for outpatient treatment. She notes that she had previously been in outpatient treatment and had been treated with fluoxetine up to 30 mg a day and had responded favorably to the treatment. However, because of logistic difficulties she was unable to maintain the outpatient relationship and ended up stopping fluoxetine. Physical Exam Psychiatric Orientation: alert and cooperative Apperance: appropriately dressed, appropriately groomed and appeared stated age Eye Contact: good eye contact Motor Behavior: steady gait and station and no abnormal motor movements Speech: normal rate/rhythm/volume of speech Affect: euthymic affect and mood congruent with affect "Pretty good." Thought Process: goal directed thought process Thought Content: reality based without delusions Suicidal Thoughts: denies suicidal thoughts Homicidal Thoughts: denies homicidal thoughts Hallucinations: no auditory hallucinations and no visual hallucinations Cognition: recent memory grossly intact, attention grossly intact and language grossly intact Insight: + fair insight Judgement: + fair judgement Vital Signs (Past 24 Hours) Last Vital Signs Temp 36.7 C 03/09/20 06:46 Pulse 65 03/09/20 06:46 Resp 16 03/09/20 06:46 BP 112/79 03/09/20 06:46 Pulse Ox 98 03/05/20 17:24 Principal Diagnosis Major depressive disorder, recurrent, severe without psychosis Borderline personality traits Psychiatric Data The patient was hospitalized for 4 days. She was started on fluoxetine, and she reported a previous good response to the medication, and tolerated it well. She attended and participated in groups and therapy, work on healthy coping skills and her discharge safety plan. She was referred for outpatient services, including a blended ed case manager, psychiatrist, and therapist. She had a [employer] meeting with her boyfriend and the social worker psychiatric on 03/07/2020; they discussed her difficulties managing her anger, tendency to self-harm, recently self injuring by scratching superficially with pushpins or her fingernails. She states that she self injures in an attempt to "reset my brain." She said she would like to be able to stop engaging in self-injurious behavior, and was willing to work on this in outpatient therapy. Their household was described as stressful, but neither the patient nor her boyfriend felt able to change that as they need the rent contribution from the couple who lives with them. The patient also stated she does not really like children, and there are 4 children currently in the household, including the patient's 4-year-old and the other couples' 3 children. Their communication problem were discussed, as well as ways to better manage stress. Boyfriend confirmed there are no weapons in the home, and denied any specific safety concerns. He did encourage the patient to commit to ongoing outpatient treatment, which she agreed to. She was observed to be eating and sleeping well in the hospital, was compliant with medications, and tolerated the fluoxetine well without side effects. Day of Discharge Assessment Staff report the patient rated her mood a 7/10 last evening, and stated she was feeling "uplifted." Her affect has been brighter, and she has been observed laughing with peers on the unit. She is denying suicidal thoughts or urges to self-harm, and stating she hopes to be discharged. She has been working on identifying healthier coping skills, including outlets for her negative emotions. She attended self awareness group and processed cognitive distortions that she recognizes and her negative thinking. On my assessment, she states that her mood is "pretty good," and denies suicidal thoughts and urges to harm herself. She states that she typically has thoughts that it would be better if she were not alive on a daily basis, but these only progressed to active suicidal thoughts when she is under severe stress or overwhelmed. She denies having any thoughts of wanting to end her life since admission, and denies urges to self injure. She is able to identify healthy coping skills she has been working on and is willing to follow-up with outpatient treatment. She denies medication side effects. She is requesting discharge, and denies any acute safety concerns. Transition of Care Transition Of Care Record: was reviewed with the patient Advance Directives Advance Directives Information Provided: No Advance Directives: No Mental Health Advance Directive: No Advance Directives on File: No Living Will: No Power of Industry Operations Investigator: No Advance Directives Reason:: Declines as Mental Health Visit. Risk Factors Assessment Risk factors were mitigated by admission to the inpatient unit, use of medications to target depressive symptoms, education about her diagnosis and the recommended treatment, participation in groups and therapy, working on healthy coping skills and her discharge safety plan, family meeting with her boyfriend whom she lives with, and referral for outpatient mental health services including a blended ed case manager, psychiatrist, and therapist. She has demonstrated improvement in mood and thoughts of self-harm, has consistently denied suicidal ideation and urges to self injure, and is eating and sleeping well and performing ADLs independently. She is requesting discharge, and as she has no longer at acute risk of harm to herself, can be managed as an outpatient at this time. She has not endorsed risk factors that indicate increased risk of harm to others. 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 Relationships: Yes Supportive Family: Yes Good Rapport with Provider: No Absence of Any Risk Factors Above: No Tobacco Cessation at Discharge Tobacco Cessation Medication Prescribed at Discharge: Not Applicable/Non-Smoker Total Time Total Time Spent: Greater Than 30 Minutes Total Time Includes: Examination of the patient, Discharge Planning and Medication Reconciliation Discharge Data Lab Results 03/05/20 03/05/20 03/05/20 14:40 14:40 14:40 WBC RBC Hgb Hct MCV MCH MCHC RDW Std Deviation RDW Coeff of Ty Plt Count MPV Immature Gran % (Auto) Neut % (Auto) Lymph % (Auto) [place] % (Auto) Eos % (Auto) Baso % (Auto) Neut # (Auto) Lymph # (Auto) [place] # (Auto) Eos # (Auto) Baso # (Auto) Immature Gran # (Auto) Sodium Potassium Chloride Carbon Dioxide Anion Gap BUN Creatinine Est Cr Clr Drug Dosing Est GFR ( Amer) Est GFR (Non-Af Amer) BUN/Creatinine Ratio Glucose Calcium Total Bilirubin AST ALT Alkaline Phosphatase Total Protein Albumin Globulin Albumin/Globulin Ratio TSH Urine Color Dark Yellow Urine Appearance Clear Urine pH 6.5 Ur Specific [place] 1.028 Urine Protein Trace H Urine Glucose (UA) Negative Urine Ketones 2+ H Urine Blood Negative Urine Nitrite Negative Urine Bilirubin Negative Urine Urobilinogen Negative Ur Leukocyte Esterase Negative Urine WBC (Auto) 1-5 Urine RBC (Auto) 0-4 U Hyaline Cast (Auto) 1-5 U Epithel Cells (Auto) >30 H Urine Bacteria (Auto) Negative POC Ur Test NEG Salicylates Urine Opiates Screen Neg Ur Methadone, Qual Neg Acetaminophen Urine Barbiturates Neg Ur Phencyclidine (PCP) Neg U Amphetamin/Meth Scrn Neg MDMA (Ecstasy) Screen Neg U Benzodiazepines Scrn Neg Ur Cocaine Metabolite Neg U Marijuana (THC) Screen Pos H U Marijuana THC Carboxy Drug Screen Comment Ethyl Alcohol mg/dL 03/05/20 03/05/20 03/05/20 14:40 15:02 15:02 WBC 8.16 RBC 4.87 Hgb 15.1 Hct 43.1 MCV 88.5 MCH 31.0 MCHC 35.0 RDW Std Deviation 42.9 RDW Coeff of Ty 13.2 Plt Count 248 MPV 10.4 Immature Gran % (Auto) 0.1 Neut % (Auto) 71.9 Lymph % (Auto) 21.6 [place] % (Auto) 5.0 Eos % (Auto) 1.2 Baso % (Auto) 0.2 Neut # (Auto) 5.86 Lymph # (Auto) 1.76 [place] # (Auto) 0.41 Eos # (Auto) 0.10 Baso # (Auto) 0.02 Immature Gran # (Auto) 0.01 Sodium 139 Potassium 3.8 Chloride 107 Carbon Dioxide 22 Anion Gap 10.0 BUN 10 Creatinine 0.81 Est Cr Clr Drug Dosing 98.5 Est GFR ( Amer) 116.2 Est GFR (Non-Af Amer) 100.2 BUN/Creatinine Ratio 12.7 Glucose 89 Calcium 9.4 Total Bilirubin 0.8 AST 16 ALT 25 Alkaline Phosphatase 72 Total Protein 8.0 Albumin 3.9 Globulin 4.1 H Albumin/Globulin Ratio 0.9 TSH 1.060 Urine Color Urine Appearance Urine pH Ur Specific [place] Urine Protein Urine Glucose (UA) Urine Ketones Urine Blood Urine Nitrite Urine Bilirubin Urine Urobilinogen Ur Leukocyte Esterase Urine WBC (Auto) Urine RBC (Auto) U Hyaline Cast (Auto) U Epithel Cells (Auto) Urine Bacteria (Auto) POC Ur Test Salicylates Urine Opiates Screen Ur Methadone, Qual Acetaminophen Urine Barbiturates Ur Phencyclidine (PCP) U Amphetamin/Meth Scrn MDMA (Ecstasy) Screen U Benzodiazepines Scrn Ur Cocaine Metabolite U Marijuana (THC) Screen U Marijuana THC Carboxy 3190 H Drug Screen Comment SEE NOTE Ethyl Alcohol mg/dL 03/05/20 03/05/20 15:02 15:02 WBC RBC Hgb Hct MCV MCH MCHC RDW Std Deviation RDW Coeff of Ty Plt Count MPV Immature Gran % (Auto) Neut % (Auto) Lymph % (Auto) [place] % (Auto) Eos % (Auto) Baso % (Auto) Neut # (Auto) Lymph # (Auto) [place] # (Auto) Eos # (Auto) Baso # (Auto) Immature Gran # (Auto) Sodium Potassium Chloride Carbon Dioxide Anion Gap BUN Creatinine Est Cr Clr Drug Dosing Est GFR ( Amer) Est GFR (Non-Af Amer) BUN/Creatinine Ratio Glucose Calcium Total Bilirubin AST ALT Alkaline Phosphatase Total Protein Albumin Globulin Albumin/Globulin Ratio TSH Urine Color Urine Appearance Urine pH Ur Specific [place] Urine Protein Urine Glucose (UA) Urine Ketones Urine Blood Urine Nitrite Urine Bilirubin Urine Urobilinogen Ur Leukocyte Esterase Urine WBC (Auto) Urine RBC (Auto) U Hyaline Cast (Auto) U Epithel Cells (Auto) Urine Bacteria (Auto) POC Ur Test Salicylates < 1.7 L Urine Opiates Screen Ur Methadone, Qual Acetaminophen < 2 L Urine Barbiturates Ur Phencyclidine (PCP) U Amphetamin/Meth Scrn MDMA (Ecstasy) Screen U Benzodiazepines Scrn Ur Cocaine Metabolite U Marijuana (THC) Screen U Marijuana THC Carboxy Drug Screen Comment Ethyl Alcohol mg/dL < 3.0 Hospital Course (1) Major depression: 03/06/20 -The patient has been admitted to the [facility] behavioral health unit and is currently being observed on suicide precautions. She has been referred for individual, group, recreational, and family interventions. Treatment goals at this point will include the development of improved individual coping strategies that can be applied when under stress. -Given the fact that the patient reports that she has a past history of favorably responding to fluoxetine (starting at 20 mg a day and then increased to 30 mg a day), and given that she reports that she tolerated fluoxetine well without any noted adverse effects, the plan will be to restart fluoxetine 20 mg a day and titrate as tolerated and indicated to 30 mg or more. 03/07 -continue with start of fluoxetine 20mg, and milieu and group therapy, goal is to establish meeting time for patient and BF with social work 03/08 - continue fluoxetine 20mg, stop trazodone and trial vistaril at for insomnia, and CBT homework assigned to begin to be more intentional about self- observation of status, and complete safety plan 03/09 -discharged to home, follow-up at [facility] ed case manager. 30- day prescription of fluoxetine sent to her pharmacy. (2) At risk for suicide: 03/06/20 and 03/07 and 03/08 -Patient has a reported history of several previous suicide attempts. She also has a history of intentional self injurious behaviors in the form of scratching the fleshy portions of her anatomy with sharp objects such as thumbtacks in order to relieve stress. -At admission, the patient reported that she had just intentionally cut the dorsal surface of her forearm, but also noted that she was having active thoughts of causing serious physical harm to herself. She notes that she continued to have suicidal thoughts after admission, but indicates that these thoughts have not become fleeting and are no longer associated with any particular plan or intent. -Psychiatric hospitalization is medically necessary given the fact that the patient is clearly depressed, has engaged in recent self-injurious behaviors, has had active thoughts of suicide as recently as yesterday, and has a history of several serious suicide attempts in the past. Until further stabilized and appropriate aftercare arrangements were made inpatient psychiatric hospitalization is the least restrictive, least intensive level of care consistent with the patient's clinical and safety needs. 03/09 -patient consistently denying SI/SIB, able to review discharge safety plan. Mental Health & Subst Abuse Tx Psychiatrist Name of Psychiatrist: Rocio Hu Psychiatric Appointment Comment: will be scheduled after intake with therapist Therapist Name of Therapist: Rocio Vásquez, [address] [facility] Date of Therapist Appointment: 03/12/20 Time of Therapist Appointment: 10am Therapy Appointment Comment: wear a mask, go to the parking lot at the back of the [facility], & ring buzzer Post Discharge Appointments Primary Care Physician Name Of Family Doctor: Dr. Morse Smoking Cessation Counseling Tobacco Cessation Medication Prescribed at Discharge: Not Applicable/Non-Smoker Discharge Plan Discharge Items Patient Disposition: Home - Self-Care Reason For Visit: MDD, SI Discharge Diagnosis: Depression Activity: Per Instructions section Non-emergency contact: Psychiatrist, Therapist and Molding Machine Setter Call non-emergency contact if: you have any medication questions and your symptoms worsen Follow-up/Referrals: Una López DO [Primary Care Provider] - Diet: Regular Addtl Attending Provider Instructions: SPECIAL CARE INSTRUCTIONS: 1. Follow through with your scheduled aftercare appointments. If unable to keep an appointment, please call to reschedule. 2. Take your medication only as prescribed. Medication should not be changed or stopped without the approval of your doctor. In the event of worsening symptoms or concerns about side effects, contact your doctor immediately. 3. Utilize new healthy coping skills, anger management skills, and stress management skills learned during your hospitalization. Journal feelings and process them with a support person. Identify stressors or situations that may result in relapse, deterioration or inappropriate behaviors and develop a plan to deal with those issues. 4. If your coping skills are ineffective and you are in crisis, contact your outpatient providers for direction. If unable to reach your providers, please call the [facility] CRISIS LINE AT , go to the [facility] walk-in center at [address], [address], [place], or go to the closest Emergency Room. 5. Avoid alcohol and un-prescribed drugs. 6. You have been provided with the Mental Health Advance Directives Pamphlet for your review. AFTERCARE APPOINTMENTS: * Please call your insurance company prior to your scheduled appointment to confirm your aftercare providers are covered. Take your insurance information to your appointments. WHO TO CALL AND WHEN: Medical Emergencies: For questions or emergencies related to your hospital stay, please contact the Inpatient Behavioral Health Unit at [phone]. A spinning and winding supervisor is on-call 16/01 for the Behavioral Health Unit for emergencies At any time you feel your situation is an emergency, you may also call 911 immediately. Pending Studies at Discharge: No Stand-Alone Forms: My [facility] [employer], Smoking Cessation, Suicide Prevention Resources Medications and DC Order Prescriptions: New fluoxetine 20 mg Capsule 20 mg PO QAM Qty: 30 RF: 0 Continued Control Pills 1 tab PO DAILY RF: 0 Discharge Orders: Discharge Order (Routine); Ordered 03/09/20 Ordered By: Stephanie Donis Admission Data Admit Date/Time: 03/05/20 17:02 Attending Provider: Will Nieves Admit Provider: Humberto John I. Primary Care Provider: Una López Other Interventions: PSY Interdisciplinary Discharge Planning Last Done: 03/06/20 14:06 Coding Level of Care Code 48667 D/C day mgmt > 30 min Diagnoses Major depression F32.9 At risk for suicide R45.89
== END 2020-03-09 11:55 | disposition home or self-care (01) | DRG 885 ==
LOC: ED 14:30 → 3S 17:02

== ENCOUNTER 2021-02-03 19:14 | Inpatient (IN) ==
[2021-02-03] MEDS ORDERED: OXYTOCIN 30 UNITS/500 ML BAG IV PRN (20:16)
[2021-02-03] MEDS: LACTATED RINGER'S 1,000 ML IV PRN ×2 (20:45→21:39)
[2021-02-03] MEDS ORDERED: BUTORPHANOL TARTRATE 1 MG/ML VIAL IV PRN (20:45)
[2021-02-03 20:52] LABS: Hemoglobin 12.8 g/dL (12.0-16.0); Mean Corpuscular Hemoglobin 29.8 pg (25-34); Mean Corpuscular Hgb Conc 34.6 g/dL (32-36); Mean Platelet Volume 10.6 fL (7.4-10.4); Platelet Count 227 K/uL (130-400); RDW Coefficient of Variation 16.2 % (11.5-14.5); RDW Standard Deviation 51.2 fL (36.4-46.3); White Blood Count 10.96 K/uL (4.8-10.8)
[2021-02-03] MEDS ORDERED: SODIUM CHLORIDE 0.9% INJ 10 ML VIAL ONE (21:04)
[2021-02-03] MEDS ORDERED: ePHEDrine sulfate 50 MG/ML AMP ONE (21:04)
[2021-02-03] MEDS ORDERED: fentaNYL citrate 100 MCG/2 ML VIAL ONE (21:04)
[2021-02-03] MEDS ORDERED: BUPIVACAINE 0.25% 30 ML VIAL ONE (21:04)
[2021-02-03] MEDS ORDERED: fentaNYL 2MCG/ML ROPIVACAINE 1.25MG/ML 100 ML BAG EPI ONE (21:05)
--- NOTE | 2021-02-03 21:15 | History & Physical Report ---
Date of Service February 03, 2021 Assessment & Plan (1) : Plan: Admit in labor for TOLAC (2) Cannabis abuse: Plan: as above (3) Depression: History of Present Illness Chief Complaint: labor 39 weeks TOLAC Primary Care Provider: Una López DO 25 F P1001 at 39 weeks admitted in labor with prior desiring Allergies Allergy/AdvReac Type Severity Reaction Status Date / Time No Known Allergies Allergy Verified 02/03/21 19:23 Home Medications Medication Instructions Recorded Confirmed Type buspirone 15 mg tablet 15 mg PO BID 11/18/20 02/03/21 History sertraline 50 mg tablet 100 mg PO DAILY 11/18/20 02/03/21 History iron 1 tab PO BID 02/03/21 02/03/21 History magnesium 1 tab PO DAILY 02/03/21 02/03/21 History Patient History Medical History Cannabis abuse delivery delivered Strep pharyngitis Suicidal ideation Surgical History [place] teeth removed Social History Smoking Status: Former smoker Hx Alcohol Use: No Hx Substance Use: Yes Preferred Language: Mongolian Communication Ability: Effective Warehouse Associate Driver Required: No Beliefs That Will Affect Care: None marital status: Single Current Living Situation: Significant Other Current Living Situation Comment: lives with FOB and daughter. Feels Safe at Home: Yes Safety Concerns: Feels Safe At This Time Assistive Devices: Glasses OB History for breech with first PIER HAND HELPER History wnl Review of Systems All systems reviewed & are unremarkable except as noted in HPI & below Physical Exam Constitutional: WD/WN, vitals as above + acute distress Eyes: PERRL, conjunctivae normal, anicteric sclerae Neck: trachea midline, no thyromegaly Respiratory: normal respiratory effort, lungs clear to auscultation Cardiovascular: Rate/Rhythm: regular rate and regular rhythm Skin: no rashes, warm and dry Neurologic: patellar DTR's 2+ bilat, sensation intact Psychiatric: A+Ox3, euthymic affect Genitourinary: Manual OB Exam: + cervical dilation 3 cm and 4 cm Results & Data ([facility]) Vital Signs (Past 12 Hours) Vital Signs Temp Pulse Resp BP 02/03/21 19:30 75 133/81 02/03/21 19:28 37 C 18 Code Status & VTE Plan VTE Prophylaxis Plan VTE Prophylaxis will be ordered: No (1) Weeks of gestation: 18 weeks Qualified Code(s): Z3A.18 - 18 weeks gestation of (2) Depression Active/Remission status: currently active Depression Type: major depressive disorder Major depression episode severity: moderate Major depression recurrence: recurrent Qualified Code(s): F33.1 - Major depressive disorder, recurrent, moderate
--- NOTE | 2021-02-03 21:22 | Labor Progress Brief Note ---
Date of Service February 03, 2021 Assessment & Plan Admission and Anticipated Discharge Date Admission Date: February 03, 2021 Physical Exam Genitourinary: Manual OB Exam: + cervical dilation 7 cm, + cervical effacement 100% and + station -1 OB Exam Monitor Tracing: + external FHT monitor used, + external uterine monitor used, + category I and + normal FHT variability Results & Data ([facility]) Vital Signs (Past 12 Hours) Vital Signs Temp Pulse Resp BP 02/03/21 19:30 75 133/81 02/03/21 19:28 37 C 18
--- NOTE | 2021-02-03 22:05 | Anesthesiology Consultation ---
Date of Service February 03, 2021 Assessment & Plan Chart Review Chart Review: Acceptable Risk for Labor Epidural Consults Requested none History Height/Weight Height: 5 ft 6 in Weight: 85.275 kg Allergies Allergy/AdvReac Type Severity Reaction Status Date / Time No Known Allergies Allergy Verified 02/03/21 19:23 Medications Home Medications Medication Instructions Recorded Confirmed Last Taken buspirone 15 mg tablet 15 mg PO BID 11/18/20 02/03/21 02/03/21 08:00 sertraline 50 mg tablet 100 mg PO DAILY 11/18/20 02/03/21 02/03/21 08:00 iron 1 tab PO BID 02/03/21 02/03/21 02/03/21 08:00 magnesium 1 tab PO DAILY 02/03/21 02/03/21 02/03/21 08:00 Active Medications Generic Name Dose Route Start Last Admin Trade Name Freq PRN Reason Stop Dose Admin Lactated Ringer's 1,000 mls @ 125 mls/hr 02/03/21 20:16 02/03/21 21:39 Lr IV 02/05/21 20:15 999 mls/hr .Q8H PRN Administration L&D Protocol Protocol Past Medical History Medical History Cannabis abuse delivery delivered Strep pharyngitis Suicidal ideation Past Surgical History Surgical History Douglas teeth removed Social History Smoking Status: Former smoker Hx Alcohol Use: No Hx Substance Use: Yes substance use type: former substance user and marijuana Physical Exam Vital Signs Last Vital Signs Temp 37 C 02/03/21 19:28 Pulse 85 02/03/21 22:00 Resp 18 02/03/21 19:28 BP 119/56 L 02/03/21 21:59 Pulse Ox 93 02/03/21 22:00 Testing Laboratory Results 02/03/21 20:42
[2021-02-03] MEDS ORDERED: NALOXONE HCL 1 MG in SODIUM CHLORIDE 0.9% 1000ML 1,000 ML IV PRN (22:06)
[2021-02-03] MEDS ORDERED: diphenhydrAMINE 50 MG/ML VIAL IV PRN (22:06)
[2021-02-03] MEDS ORDERED: NALOXONE HCL 0.4 MG/1 ML VIAL/CARP IV PRN (22:06)
[2021-02-03] MEDS ORDERED: ePHEDrine sulfate 50 MG/ML AMP IV PRN (22:06)
[2021-02-03] MEDS ORDERED: ONDANSETRON INJ 2 MG/ML 2 ML VIAL IV PRN (22:06)
[2021-02-03] MEDS ORDERED: fentaNYL 2MCG/ML ROPIVACAINE 1.25MG/ML 100 ML BAG EPI PRN (22:06)
[2021-02-03] MEDS ORDERED: NALBUPHINE HCL INJ 10 MG/ML AMP IV PRN (22:06)
--- NOTE | 2021-02-04 00:52 | Anesthesia Procedure Note ---
Date of Service February 04, 2021 Anesthesia Post Epidural Note Vital Signs Vital Signs: Temp Pulse Resp BP Pulse Ox 37 C 113 H 18 104/68 89 L 02/03/21 19:28 02/04/21 00:31 02/03/21 19:28 02/04/21 00:31 02/03/21 23:05 Pain Intensity Lower Abdomen: Pain Intensity: 2 Notes Mental Status: alert / awake / arousable and participated in evaluation Nausea / Vomiting: adequately controlled Pain: adequately controlled Airway Patency, RR, SpO2: stable & adequate BP & HR: stable & adequate Hydration State: stable & adequate Neuraxial Anesthesia: was administered and sensory block is resolving Anesthetic Complications: no major complications apparent and Pt Satisfied with anesthetic care Epidural: Removed without complications and With tip intact
[2021-02-04] MEDS ORDERED: BENZOCAINE 20% AER SPR 82.5 GM CAN EXT PRN (03:27)
[2021-02-04] MEDS ORDERED: ACETAMINOPHEN 325 MG TAB PO PRN (03:27)
[2021-02-04] MEDS ORDERED: HYDROCORTISONE ACETATE 25 MG SUPP PR PRN (03:27)
[2021-02-04] MEDS ORDERED: DIPHTHERIA/TETANUS/PERTUSSIS 0.5 ML SYR/VIAL IM ONE (03:27)
[2021-02-04] MEDS ORDERED: bisacodyL 10 MG SUPP PR PRN (03:27)
[2021-02-04] MEDS ORDERED: OXYTOCIN 30 UNITS/500 ML BAG IV PRN (03:27)
[2021-02-04] MEDS ORDERED: SUPERCREAM 0.870% 15 GM JAR EXT PRN (03:27)
[2021-02-04] MEDS ORDERED: BENZOCAINE 20% AER SPR 82.5 GM CAN EXT ONE (03:30)
[2021-02-04] MEDS ORDERED: IBUPROFEN 600 MG TAB PO ONE (03:30)
--- NOTE | 2021-02-04 04:01 | Delivery Summary ---
Vaginal Delivery Summary Date of Service February 04, 2021 Vaginal Delivery Summary Delivery NOTE () live female KENYA over intact perineum with delayed cord clamping and Apgars 8/9 weight pending. No tears, Cord blood obtained followed by spontaneous delivery of intact placenta. Final spong needle and instrument count are correct. Mom and baby stable.
--- NOTE | 2021-02-04 07:47 | Obstetrical Progress Note ---
Date of Service February 04, 2021 Assessment & Plan Admission and Anticipated Discharge Date Admission Date: February 03, 2021 Subjective Patient is seen and examined. She feels well, no complaints. Ambulating without dizziness Voiding without difficulty Tolerating regular diet with out N&V Bleeding is minimal No fever/ chills/ CP/ SOB/ N&V/ Leg pain Breast feeding without problems Vital Signs Temp Pulse Pulse Resp BP BP Pulse Ox 02/04/21 07:40 36.7 C 73 18 115/74 98 02/04/21 03:35 36.5 C 70 18 109/69 99 02/04/21 02:20 36.8 C 94 H 20 119/74 99 02/04/21 01:45 72 111/58 L 02/04/21 01:30 109 H 117/81 02/04/21 01:01 117 H 109/62 02/04/21 00:31 113 H 104/68 02/03/21 23:59 88 106/68 02/03/21 23:29 117 H 111/68 02/03/21 23:05 91 H 89 L 02/03/21 23:01 98 H 96/49 L 02/03/21 23:00 98 H 92 02/03/21 22:55 99 H 92 02/03/21 22:52 111 H 94 02/03/21 22:50 103 H 95 02/03/21 22:46 112 H 120/58 L 93 02/03/21 22:45 115 H 91 02/03/21 22:40 85 92 02/03/21 22:35 111 H 92 02/03/21 22:34 94 H 94 02/03/21 22:32 106 H 118/60 02/03/21 22:30 73 93 02/03/21 22:28 98 H 94 02/03/21 22:25 69 96 02/03/21 22:23 74 94 02/03/21 22:20 71 94 02/03/21 22:16 72 94 02/03/21 22:15 71 94 02/03/21 22:11 79 91 02/03/21 22:10 73 97 02/03/21 22:05 88 94 02/03/21 22:00 85 93 02/03/21 21:59 88 119/56 L 02/03/21 21:55 80 92 02/03/21 21:52 81 110/56 L 02/03/21 21:50 73 94 02/03/21 21:48 66 127/59 L 02/03/21 21:46 80 119/70 02/03/21 21:45 80 116/62 91 02/03/21 21:44 75 93 02/03/21 21:40 91 H 93 02/03/21 21:35 97 H 87 L Lab Results 02/03/21 02/03/21 02/03/21 Range/Units 20:20 20:20 20:42 WBC 10.96 H (4.8-10.8) K/uL RBC 4.30 (4.2-5.4) M/uL Hgb 12.8 (12.0-16.0) g/dL Hct 37.0 (37-47) % MCV 86.0 (80-100) fL MCH 29.8 (25-34) pg MCHC 34.6 (32-36) g/dL RDW Std Deviation 51.2 H (36.4-46.3) fL RDW Coeff of Ty 16.2 H (11.5-14.5) % Plt Count 227 (130-400) K/uL MPV 10.6 H (7.4-10.4) fL COVID-19 Eval [facility] SARS-[facility]-2, RNA, NAAT NEGATIVE (NEGATIVE) PE: General: Alert, orientedx3, NAD Abd: soft, NT, fundus firm, below Umbilicus Perineum intact, Lochia rubra minimal Ext; NT, no edema AP: 25 yo s/p , ppd# 1 VSS Afebrile doing well Continue routine care All questions were answered D/C home tomorrow Results & Data ([facility]) Vital Signs (Past 12 Hours) Vital Signs Temp Pulse Pulse Resp BP BP Pulse Ox 02/04/21 07:40 36.7 C 73 18 115/74 98 02/04/21 03:35 36.5 C 70 18 109/69 99 02/04/21 02:20 36.8 C 94 H 20 119/74 99 02/04/21 01:45 72 111/58 L 02/04/21 01:30 109 H 117/81 02/04/21 01:01 117 H 109/62 02/04/21 00:31 113 H 104/68 02/03/21 23:59 88 106/68 02/03/21 23:29 117 H 111/68 02/03/21 23:05 91 H 89 L 02/03/21 23:01 98 H 96/49 L 02/03/21 23:00 98 H 92 02/03/21 22:55 99 H 92 02/03/21 22:52 111 H 94 02/03/21 22:50 103 H 95 02/03/21 22:46 112 H 120/58 L 93 02/03/21 22:45 115 H 91 02/03/21 22:40 85 92 02/03/21 22:35 111 H 92 02/03/21 22:34 94 H 94 02/03/21 22:32 106 H 118/60 02/03/21 22:30 73 93 02/03/21 22:28 98 H 94 02/03/21 22:25 69 96 02/03/21 22:23 74 94 02/03/21 22:20 71 94 02/03/21 22:16 72 94 02/03/21 22:15 71 94 02/03/21 22:11 79 91 02/03/21 22:10 73 97 02/03/21 22:05 88 94 02/03/21 22:00 85 93 02/03/21 21:59 88 119/56 L 02/03/21 21:55 80 92 02/03/21 21:52 81 110/56 L 02/03/21 21:50 73 94 02/03/21 21:48 66 127/59 L 02/03/21 21:46 80 119/70 02/03/21 21:45 80 116/62 91 02/03/21 21:44 75 93 02/03/21 21:40 91 H 93 02/03/21 21:35 97 H 87 L
[2021-02-04] MEDS: DOCUSATE SODIUM 100 MG CAP PO SCH ×2 (08:43→20:42)
[2021-02-04] MEDS: PRENATAL VITAMIN 1 TAB PO SCH (08:44)
[2021-02-04] MEDS: FERROUS SULFATE 325 MG TAB PO SCH ×2 (08:44→20:42)
[2021-02-04] MEDS: IBUPROFEN 600 MG TAB PO PRN ×3 (08:45→20:42)
[2021-02-04] MEDS: SERTRALINE HCL 100 MG TABLET PO SCH (08:46)
[2021-02-04] MEDS: busPIRone 15 MG TAB PO SCH ×2 (08:46→20:42)
[2021-02-04] MEDS ORDERED: NON-FORMULARY MEDICATION (Magnesium 1 TAB) PO SCH (09:00)
[2021-02-05] MEDS: IBUPROFEN 600 MG TAB PO PRN (06:39)
[2021-02-05 07:41] LABS: Hematocrit (blood only) 24.4 % (37-47); Hemoglobin 8.1 g/dL (12.0-16.0); Mean Corpuscular Hemoglobin 29.3 pg (25-34); Mean Corpuscular Hgb Conc 33.2 g/dL (32-36); Mean Corpuscular Volume 88.4 fL (80-100); Mean Platelet Volume 9.8 fL (7.4-10.4); Platelet Count 190 K/uL (130-400); RDW Coefficient of Variation 16.5 % (11.5-14.5); RDW Standard Deviation 53.1 fL (36.4-46.3); Red Blood Count 2.76 M/uL (4.2-5.4); White Blood Count 11.39 K/uL (4.8-10.8)
--- NOTE | 2021-02-05 08:20 | Delivery Summary ---
Vaginal Delivery Summary Date of Service February 04, 2021
--- NOTE | 2021-02-05 08:20 | Obstetrical Progress Note ---
Date of Service February 05, 2021 Subjective Ambulation: ambulating normally Voiding: no voiding problems Passing Gas:: Yes Diet Tolerance:: regular diet Feeding Type:: breast feeding Current Pain Level(1-10): 0 doing well plans for discharge Physical Exam Constitutional WD/WN, vitals as above well groomed abdomen soft and non-tender fundus firm no edema neg Efraín's no vaginal bleeding for d/c today Results & Data ([facility]) Vital Signs (Past 12 Hours) Vital Signs Temp Pulse Resp BP 02/05/21 01:00 36.7 C 72 18 116/78 Laboratory Results 02/03/21 02/03/21 02/03/21 20:20 20:20 20:42 WBC 10.96 H RBC 4.30 Hgb 12.8 Hct 37.0 MCV 86.0 MCH 29.8 MCHC 34.6 RDW Std Deviation 51.2 H RDW Coeff of Ty 16.2 H Plt Count 227 MPV 10.6 H COVID-19 Eval Order [facility]19 [facility] SARS-CoV-2, RNA, NAAT NEGATIVE 02/05/21 07:05 WBC 11.39 H RBC 2.76 L Hgb 8.1 L D Hct 24.4 L MCV 88.4 MCH 29.3 MCHC 33.2 RDW Std Deviation 53.1 H RDW Coeff of Ty 16.5 H Plt Count 190 MPV 9.8 COVID-19 Eval Order SARS-CoV-2, RNA, NAAT
[2021-02-05] MEDS: PRENATAL VITAMIN 1 TAB PO SCH (08:35)
[2021-02-05] MEDS: SERTRALINE HCL 100 MG TABLET PO SCH (08:35)
[2021-02-05] MEDS: busPIRone 15 MG TAB PO SCH (08:35)
[2021-02-05] MEDS: DOCUSATE SODIUM 100 MG CAP PO SCH (08:35)
[2021-02-05] MEDS: FERROUS SULFATE 325 MG TAB PO SCH (08:35)
[2021-02-05] MEDS ORDERED: bisacodyL 5 MG TABEC PO SCH (20:00)
== END 2021-02-05 14:45 | disposition home or self-care (01) | DRG 806 ==
LOC: OPB 19:14 → 4S1 19:19 → 4S2 02-04 01:45 → UNDODISIN 02-05 13:24